=== PATIENT | male | born 1935 | race Caucasian/White ===

== ENCOUNTER 2024-11-25 12:46 | Emergency (ER) | payer OTHER ==
[~2024-11-25] VITALS: Ht 182.9 cm; Wt 97.5 kg
[~2024-11-25 12:46] MED LIST: ACET500 PO; ALEN35; AMOCLA875 PO; ASPI81CH PO; Amoxicillin875 MG PO; CARV6.25 PO; CETI10 PO; DIPH50 PO; DOCU100 PO; GABA100 PO; HYDACE5 PO; IRON325 MG; LEVSOD137 PO; LEVSOD200; LISI5 PO; MIRALAX17 GM PO; NAPR550 PO; NIAC500ER; NIFE30ER PO; NIFE90ER; OXYC5 PO; PRED20 PO; TRAM50 PO; VIT C-ROSE HIP500 MG PO; VITAMIN D PO
[2024-11-25 13:37] LABS: Albumin/Globulin Ratio 0.9 (0.8-1.8); Bilirubin, Total 0.5 mg/dL (0.1-1.0); Bun/Creatinine Ratio 17.1 (12.0-20.0); Creatinine, Blood 1.81 mg/dL (0.60-1.20); Globulin, Blood 3.5 g/dL (2.2-4.0); Potassium, Blood 4.4 mmol/L (3.5-5.5); Total Protein, Blood 6.5 g/dL (6.4-8.2)
[2024-11-25 15:15] LABS: Source, Urine Straight Cath
[2024-11-25 15:31] LABS: Appearance, Urine Clear (Clear); Bilirubin, Urine Neg (Neg); Blood, Urine Neg (Neg); Color, Urine Yellow (P-Yellow); Glucose Qualitative, Urine Neg (Neg); Ketones, Urine Neg (Neg); Leukocyte Esterase, Urine Neg (Neg); Nitrite, Urine Neg (Neg); Protein, Urine 1+ (Neg); Specific Gravity, Urine 1.015 (1.003-1.022); Urobilinogen, Urine NORM (Normal)
[2024-11-25 15:35] LABS: BASOPHILS ABSOLUTE AUTO 0.02 K/mm3 (0.00-0.23); BASOPHILS PERCENT AUTO 0 % (0-2); EOSINOPHILS ABSOLUTE AUTO 0.24 K/mm3 (0.00-0.68); EOSINOPHILS PERCENT AUTO 3 % (0-6); Hematocrit 36.4 % (37.0-53.0); Hemoglobin 11.8 g/dL (13.5-17.5); IMMATURE GRAN ABSOLUTE AUTO 0.04 K/mm3 (0.00-0.10); IMMATURE GRAN PERCENT AUTO 1 % (0-1); LYMPHOCYTES ABSOLUTE AUTO 1.16 K/mm3 (0.84-5.20); LYMPHOCYTES PERCENT AUTO 16 % (21-46); MONOCYTES ABSOLUTE AUTO 0.66 K/mm3 (0.16-1.47); MONOCYTES PERCENT AUTO 9 % (4-13); Mean Corpuscular HGB 29.6 pg (26.0-34.0); Mean Corpuscular HGB Conc 32.4 g/dL (31.5-36.5); Mean Corpuscular Volume 92 fL (80-100); NEUTROPHILS ABSOLUTE AUTO 4.95 K/mm3 (1.96-9.15); NEUTROPHILS PERCENT AUTO 70 % (41-73); Platelet Count 223 K/mm3 (150-400); RDW Standard Deviation 50.2 fL (35.1-46.3); Red Blood Cell Count 3.98 M/mm3 (4.30-5.90); White Blood Cell Count 7.07 K/mm3 (4.00-11.30)
[2024-11-25 17:30] VITALS: BP 143/85
== END 2024-11-25 18:02 | disposition home or self-care (01) ==
LOC: ER 12:46
PROVIDERS: Emergency Medicine; Student in an Organized Health Care Education/Training Program
DX: R41.0 Disorientation, unspecified (principal); R10.31 Right lower quadrant pain; F03.90 Unspecified dementia, unspecified severity, without behavioral disturbance, psychotic disturbance, mood disturbance, and anxiety; I10 Essential (primary) hypertension; E03.9 Hypothyroidism, unspecified; Z88.2 Allergy status to sulfonamides; Z88.8 Allergy status to other drugs, medicaments and biological substances; Z79.82 Long term (current) use of aspirin; Z79.890 Hormone replacement therapy; Z87.891 Personal history of nicotine dependence
CPT/HCPCS: 51701; 74176; 80053; 84443; 84484; 85025; 93005; 93010; 99285-25; A6590